=== PATIENT | female | born 1965 | race Caucasian/White ===

== ENCOUNTER 2017-02-22 08:26 | Outpatient (CLI) | payer BC ==
--- NOTE | 2017-02-24 19:27 | Mammography Report ---
DATE OF SERVICE: 02/22/2017 DIGITAL SCREENING MAMMOGRAM: 02/22/2017 CLINICAL INDICATION: A 52-year-old with family history of breast cancer for screening. COMPARISON: 01/2016, 01/2015, 12/2013, 11/2012, 10/2011, 09/2010, 09/2009. TECHNIQUE: Routine CC and MLO projections, as well as bilateral laterally exaggerated craniocaudal v iews were obtained of the breasts. FINDINGS: Parenchymal tissue within both breasts is heterogeneously dense, which may lower the sensi tivity of mammography; however, there are no dominant masses, suspicious microcalcifications, or secondary sign s of malignancy. In comparison to the previous studies, there are no significant changes. ASSESSMENT: NO MAMMOGRAPHIC EVIDENCE OF MALIGNANCY. NO SIGNIFICANT INTERVAL CHANGES. RECOMMENDATION: Screening mammography is recommended annually. BIRADS category 1 - Negative. STANDARD QUALIFYING STATEMENTS 1. This examination was reviewed with the aid of Computed Aided Detection (CAD). 2. A negative x-ray report should not delay biopsy if a dominant or clinically suspicious mass is pre sent. More than 5% of cancers are not identified by x-ray. 3. Dense breasts may obscure an underlying neoplasm. TD: 02/23/2017 18:56
== END 2017-02-22 08:27 | disposition home or self-care (01) ==
LOC: DI 08:26
PROVIDERS: ATTEND Obstetrics & Gynecology
DX: Z12.31 Encounter for screening mammogram for malignant neoplasm of breast (principal); Z80.3 Family history of malignant neoplasm of breast
CPT/HCPCS: 77067

== ENCOUNTER 2018-03-03 11:30 | Outpatient (CLI) | payer BC ==
--- NOTE | 2018-03-06 09:03 | Mammography Report ---
Reason: SCREENING MAMMO Procedure Date: 03/03/2018 Accession Number: [id number] / [id number] Procedure: [facility] - Screening Mammo w/James CPT Code: FULL RESULT: EXAM: Screening Mammo w/James DATE: 03/03/2018 11:59 AM CLINICAL HISTORY: Screening encounter. Family history of breast cancer in a sister at the age of 46. TECHNIQUE: Bilateral CC and MLO views were obtained. COMPARISON: 02/22/2017 through 01/09/2014. FINDINGS: The breasts demonstrate heterogeneously dense fibroglandular parenchyma bilaterally. No suspicious masses, clustered microcalcifications, or regions of architectural distortion are identified. IMPRESSION: Negative examination RECOMMENDATION: Routine annual screening unless otherwise clinically indicated. BIRADS CATEGORY 1: Negative STANDARD QUALIFYING STATEMENTS: 1. This examination was not reviewed with the aid of Computer-Aided Detection (CAD). 2. A negative or benign imaging report should not preclude biopsy if clinically suspicious findings are present. 3. Dense breasts may obscure an underlying neoplasm. 4. This examination was reviewed with the aid of 3D breast imaging (tomosynthesis).
== END 2018-03-03 11:31 | disposition home or self-care (01) ==
LOC: DI 11:30
DX: Z12.31 Encounter for screening mammogram for malignant neoplasm of breast (principal); Z80.3 Family history of malignant neoplasm of breast
CPT/HCPCS: 77063; 77067

== ENCOUNTER 2019-02-07 15:12 | Outpatient (CLI) | payer BC ==
--- NOTE | 2019-02-08 08:37 | XRAY Report ---
Reason: 5TH FINGER Procedure Date: 02/07/2019 Accession Number: [id number] / [id number] Procedure: XR - Finger(s) LT CPT Code: Final Report FULL RESULT: EXAM: LEFT FIFTH FINGER DIGIT RADIOGRAPHY EXAM DATE: 02/07/2019 03:29 PM. CLINICAL HISTORY: 5TH FINGER. COMPARISON: HAND 3 VIEW LT 09/29/2012 1:20 PM. TECHNIQUE: 3 views. FINDINGS: Bones: Normal. No fracture or bone lesion. Joints: Normal. No subluxations. Soft Tissues: Normal. No soft tissue swelling. IMPRESSION: Normal left fifth finger radiography. [facility]
== END 2019-02-07 15:13 | disposition home or self-care (01) ==
LOC: DI 15:12
PROVIDERS: ATTEND Family Medicine
DX: M79.645 Pain in left finger(s) (principal)
CPT/HCPCS: 73140

== ENCOUNTER 2023-05-07 13:12 | Outpatient (CLI) | payer BC | END 2023-05-07 13:13 | disposition home or self-care (01) | LOC: LAB 13:12 | PROVIDERS: ATTEND Podiatrist Foot & Ankle Surgery | DX: M96.0 Pseudarthrosis after fusion or arthrodesis (principal); E55.9 Vitamin D deficiency, unspecified | CPT/HCPCS: 36415; 82306 ==

== ENCOUNTER 2023-07-27 09:39 | Outpatient (CLI) | payer BC | END 2023-07-27 23:59 | disposition EMS.NT | LOC: EMS 09:39 | DX: R55 Syncope and collapse (principal) ==

== ENCOUNTER 2023-09-11 20:59 | Emergency (ER) | payer BC ==
[2023-09-11 21:14] VITALS: BP 136/68; O2SAT 99
[2023-09-11] MEDS: CEPHALEXIN 250 MG Prepack 8 CAP BOTTLE PO STA (21:36)
--- NOTE | 2023-09-11 21:36 | ED Physician Documentation ---
History of Present Illness - Stated complaint Stated Complaint: L FOOT PX - Chief complaint Chief Complaint: Ext Problem - History obtained from History obtained from: Patient - Additonal information Additional information: She had a revision of foot surgery about a month and a half ago with [facility]. Today she noticed a spot on her suture line with concern for infection. PD PAST MEDICAL HISTORY - Past Medical History Past Medical History: Yes Cardiovascular: None Respiratory: None Endocrine/Autoimmune: None GI: None : None Psych: None Musculoskeletal: None Derm: None - Past Surgical History Past Surgical History: Yes Ortho: Other - Present Medications Home Medications: Ambulatory Orders Medication Instructions Recorded Confirmed cephALEXin [Keflex] 500 mg PO Q6H #28 cap 09/11/23 - Allergies Allergies/Adverse Reactions: Allergies Allergy/AdvReac Type Severity Reaction Status Date / Time Sulfa (Sulfonamide AdvReac Itching Verified 09/11/23 21:03 Antibiotics) - Social History Does the pt smoke?: No Smoking Status: Never smoker Does the pt drink ETOH?: No Does the pt have substance abuse?: No - Immunizations Immunizations are current?: Yes - POLST Patient has POLST: No PD ED PE NORMAL - Vitals Vital signs reviewed: Yes - General General: Alert and oriented X 3, No acute distress - Extremities Extremities: Other (There are multiple suture lines about the left foot, the 1 in question is 1 on the dorsum of the left foot kind of over the top of the first metatarsal. At the distal end of this there is a tiny little bubble of pus which was expressed and cultured. There is no spreading cellulitis.) - Neuro Neuro: Alert and oriented X 3, Normal speech Results - Vitals Vitals: Vital Signs - 24 hr 09/11/23 21:03 Temperature 36.8 C Heart Rate 78 Respiratory 16 Rate Blood Pressure 136/68 H O2 Saturation 99 Oxygen O2 Source Room air PD Medical Decision Making - ED course ED course: She has a tiny little bubble of pus which could be a stitch granuloma versus a tiny infection. It does not look significant enough to be deep and going to bone. There is really no cellulitis. A culture was taken, and it may well be sterile if it is a stitch granuloma. She is put on Keflex pending results and advised expedited surgical follow-up, her current follow-up is scheduled in 2 weeks. Departure - Departure Disposition: 01 Home, Self Care Clinical Impression: Wound infection after surgery Condition: Good Record reviewed to determine appropriate education?: Yes Instructions: ED Wound Care Prescriptions: cephALEXin [Keflex] 500 mg PO Q6H #28 cap Comments: You were seen today for a tiny infection of the dorsal suture line of the left foot. Alternatively this still could be a stitch granuloma in which case the culture will be negative. You should follow-up with your surgeon, call tomorrow for the next available appointment. We are performing a wound culture, the results should be done in 48-72 hours. If antibiotic change is necessary we will call you. Return if worse in the meantime, especially if you develop increased pain, fevers, cannot keep down the medication.
--- NOTE | 2023-09-14 16:28 | ED Physician Documentation ---
ED Addendum - Addendum Addendum: 09/14/23 16:28 Wound culture reviewed, MSSA should be sensitive to Keflex.
== END 2023-09-11 21:40 | disposition home or self-care (01) ==
LOC: ED 20:59
DX: T81.41XA Infection following a procedure, superficial incisional surgical site, initial encounter (principal)
CPT/HCPCS: 87070; 87181; 87205; 99283